=== PATIENT | female | born 1990 | race Hispanic/Latino ===

== ENCOUNTER 2024-11-07 18:35 | Emergency (ER) | payer BC, OTHER ==
[2024-11-07 19:27] LABS: Specific Gravity 1.016 (1.005-1.030)
--- NOTE | 2024-11-07 20:26 | RAD REPORT ---
EXAMINATION: Head Brain Wo Cont CLINICAL INDICATION: Female, 33 years old.HEADACHE TECHNIQUE: Axial CT images from the skull base to the vertex without intravenous contrast. Coronal an d sagittal reformatted images were created from the data set. One or more of the following dose reduction techniques were used: Automated exposure control, adjustment of the mA and/or kV according to patient size, and/or iterative reconstruction. Unless otherwise specified, incidental findings do not require dedicated imaging follow-up. [id number]. COMPARISON: No prior exam. FINDINGS: INTRACRANIAL: No acute intracranial hemorrhage. No hydrocephalus. No mass effect or midline shift. No significant white matter disease. VASCULATURE: No visualized abnormalities in the arteries or dural venous sinuses. SCALP/SKULL: No calvarial fracture identified. No acute soft tissue abnormality. SINUSES: The visualized paranasal sinuses are mostly clear. No significant mastoid fluid. IMPRESSION: No acute intracranial abnormality.
[2024-11-07] MEDS ORDERED: DIPHENHYDRAMINE 50 MG/ML VIAL ONE (20:40)
[2024-11-07] MEDS ORDERED: KETOROLAC 30 MG/ML INJ ONE (20:40)
[2024-11-07] MEDS ORDERED: dexAMETHasone 10 MG/ML VIAL ONE (20:40)
[2024-11-07] MEDS ORDERED: NA CHLORIDE 0.9% 1,000 ML ONE (20:41)
[2024-11-07] MEDS ORDERED: NA CHLORIDE 0.9% 50 ML ONE (20:41)
[2024-11-07] MEDS ORDERED: METOCLOPRAMIDE 10 MG/2mL INJ ONE (20:41)
--- NOTE | 2024-11-07 21:32 | ER ---
Nurse's Notes [facility] Name: Rohini Adames Age: 33 yrs Sex: Female : 1990 Arrival Date: 11/07/2024 Time: 18:35 Bed DX3 Private MD: Diagnosis: Headache Presentation: 11/07 18:58 Chief complaint: Patient states: headache last night at 7pm, was intense stabbing pain iw behind right ear around side of head and down neck, felt dizzy and hot and had n/v , laid in dark room and pain subsided, today the pain is back , not as intense but in same spot, no hx of migraines. Coronavirus screen: At this time, the client does not indicate any symptoms associated with coronavirus-19. Ebola Screen: No symptoms or risks identified at this time. Initial Sepsis Screen: Does the patient meet any 2 criteria? No. Patient's initial sepsis screen is negative. Does the patient have a suspected source of infection? No. Patient's initial sepsis screen is negative. Risk Assessment: Do you want to hurt yourself or someone else? Patient reports no desire to harm self or others. 18:58 Method Of Arrival: Ambulatory iw 18:58 Acuity: SARITHA 3 iw 19:01 Onset of symptoms was November 06, 2024. iw Triage Assessment: 19:01 Headache History: The patient has had previous headaches and this one is more severe iw than previous episodes. General: Appears in no apparent distress. Behavior is calm, cooperative. Pain: Complains of pain in right ear and right uatsdin Pain. 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 Screenin:00 [facility] ED Fall Risk Assessment (Adult) History of falling in the last 3 months, vc1 including since admission No falls in past 3 months (0 pts) Confusion or Disorientation No (0 pts) Intoxicated or Sedated No (0 pts) Impaired Gait No (0 pts) Mobility Assist Device Used No (0 pt) Altered Elimination No (0 pt) Score/Fall Risk Level 0 - 2 = Low Risk Oriented to surroundings, Maintained a safe environment, Educated pt \T\ family on fall prevention, incl call for assistance when getting out of bed, Hourly rounding (assess needs \T\ fall precautionary measures) done. Abuse screen: Denies threats or abuse. Nutritional screening: No deficits noted. Tuberculosis screening: No symptoms or risk factors identified. Vital Signs: 19:01 BP 133 / 101; Pulse 78; Resp 16; Temp 98.8; Pulse Ox 98% on R/A; Weight 108.86 kg; iw Height 5 ft. 10 in. ; Pain 3/10; 22:09 BP 128 / 88; Pulse 76; Resp 16; Pulse Ox 100% ; vc1 19:01 Body Mass Index 34.44 (108.86 kg, 177.8 cm) iw 19:01 Pain Scale: Adult iw [place] Coma Score: 21:30 Eye Response: spontaneous(4). Motor Response: obeys commands(6). Verbal Response: kb oriented(5). Total: 15. ED Course: 18:38 Patient arrived in ED. im 18:42 Farideh Nicole FNP-C [facility]. kb 18:42 Lee Jack MD is Attending Physician. kb 19:00 Triage completed. iw 19:02 Arm band placed on. iw 20:14 CT Head Brain wo Cont In Process Unspecified. EDMS 20:45 Inserted saline lock: 20 gauge in right antecubital area, using aseptic technique. vc1 20:54 Kim Van, RN is Primary Nurse. vc1 22:05 No provider procedures requiring assistance completed. IV discontinued, intact, vc1 bleeding controlled, No redness/swelling at site. Pressure dressing applied. 22:09 Patient has correct armband on for positive identification. Provided Education on: vc1 medications. Administered Medications: 20:55 Drug: Ketorolac IVP 15 mg IVP once Route: IVP; Site: right antecubital; vc1 22:10 Follow up: Response: No adverse reaction; Marked relief of symptoms vc1 20:55 Drug: NS 0.9% IV 1000 ml IV at 1000 ml once; to be given as a bolus over 60 minutes vc1 Route: IV; Rate: 1000 ml; Site: right antecubital; 22:10 Follow up: IV Status: Completed infusion; IV Intake: 1000ml vc1 20:55 Drug: metoCLOPramide IVP 10 mg IVP once; over 1 to 2 minutes Route: IVP; Site: right vc1 antecubital; 22:10 Follow up: Response: No adverse reaction; Marked relief of symptoms vc1 20:55 Drug: diphenhydrAMINE IVP 25 mg IVP once Route: IVP; Site: right antecubital; vc1 22:10 Follow up: Response: No adverse reaction; Marked relief of symptoms vc1 20:56 Drug: Decadron - Dexamethasone IVP 10 mg IVP once Route: IVP; Site: right antecubital; vc1 22:10 Follow up: Response: No adverse reaction; Marked relief of symptoms vc1 Medication: 22:05 VIS not applicable for this client. vc1 Intake: 22:10 IV: 1000ml; Total: 1000ml. vc1 Outcome: 21:32 Discharge ordered by . sylvain 22:08 Discharged to home ambulatory, vc1 22:08 Condition: stable 22:08 Discharge instructions given to patient, Instructed on discharge instructions, follow up and referral plans. Demonstrated understanding of instructions, follow-up care, 22:11 Patient left the ED. vc1 Signatures: Dispatcher [employer] EDFarideh Johnson, PLEXIGLAS FORMER-C PLEXIGLAS FORMER-CkShereen Jacques, RN RN iw Kim Van RN RN vc1 Jasmin Collado Corrections: (The following items were deleted from the chart) 19:03 19:01 BP 133 / 101; Pulse 78bpm; Resp 16bpm; Pulse Ox 98% RA; Temp 98.8F; iw iw
--- NOTE | 2024-11-07 21:32 | EDPHYS ---
Physician Documentation [facility] Name: Rohini Adames Age: 33 yrs Sex: Female : 1990 Arrival Date: 11/07/2024 Time: 18:35 Bed DX3 Private MD: ED Physician Lee Jack HPI: 11/07 21:29 This 33 yrs old Female presents to ER via Ambulatory with complaints of kb Headache, Dizziness, Nausea/Vomiting, Palpitations. 21:29 Pt is a 33 year old female who presents for a headache to right side of head that kb started yesterday. States it has been intermittent, getting better with tylenol/motrin. Reports nausea and vomiting. States pain gets worse with movement, lights, noise. Denies headache history. 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 ROS: 21:28 Constitutional: As per HPI kb Exam: 21:28 Constitutional: This is a well developed, well nourished patient who is awake, alert, kb and in no acute distress. Head/Face: Normocephalic, atraumatic. Eyes: Pupils equal round and reactive to light, extra-ocular motions intact. Lids and lashes normal. Conjunctiva and sclera are non-icteric and not injected. Cornea within normal limits. Periorbital areas with no swelling, redness, or edema. ENT: Moist Mucous membranes Cardiovascular: Regular rate Respiratory: Respirations even and unlabored. No increased work of breathing. Talking in full sentences Skin: Warm, dry with normal turgor. Normal color. MS/ Extremity: Pulses equal, no cyanosis. Neurovascular intact. Full, normal range of motion. Neuro: Awake and alert, GCS 15, oriented to person, place, time, and situation. Vital Signs: 19:01 BP 133 / 101; Pulse 78; Resp 16; Temp 98.8; Pulse Ox 98% on R/A; Weight 108.86 kg; iw Height 5 ft. 10 in. ; Pain 3/10; 22:09 BP 128 / 88; Pulse 76; Resp 16; Pulse Ox 100% ; vc1 19:01 Body Mass Index 34.44 (108.86 kg, 177.8 cm) iw 19:01 Pain Scale: Adult iw [place] Coma Score: 21:30 Eye Response: spontaneous(4). Motor Response: obeys commands(6). Verbal Response: kb oriented(5). Total: 15. MDM: 18:42 Medical Screening Exam initiated kb 21:30 Differential diagnosis: cluster headache, migraine, tension headache. Data reviewed: kb vital signs, nurses notes. Historians other than the Patient: Spouse/Significant Other: spouse. Counseling: I had a detailed discussion with the patient and/or guardian regarding the historical points, exam findings, and any diagnostic results supporting the discharge/admit diagnosis, lab results, radiology results, the need for outpatient follow up, a family practitioner, to return to the emergency department if symptoms worsen or persist or if there are any questions or concerns that arise at home. 11/07 19:04 Order name: Test, Urine; Complete Time: 19:34 kb 11/07 19:04 Order name: CT Head Brain wo Cont; Complete Time: 20:27 kb 11/07 20:28 Order name: IV Start; Complete Time: 20:55 kb Administered Medications: 20:55 Drug: Ketorolac IVP 15 mg IVP once Route: IVP; Site: right antecubital; vc1 22:10 Follow up: Response: No adverse reaction; Marked relief of symptoms vc1 20:55 Drug: NS 0.9% IV 1000 ml IV at 1000 ml once; to be given as a bolus over 60 minutes vc1 Route: IV; Rate: 1000 ml; Site: right antecubital; 22:10 Follow up: IV Status: Completed infusion; IV Intake: 1000ml vc1 20:55 Drug: metoCLOPramide IVP 10 mg IVP once; over 1 to 2 minutes Route: IVP; Site: right vc1 antecubital; 22:10 Follow up: Response: No adverse reaction; Marked relief of symptoms vc1 20:55 Drug: diphenhydrAMINE IVP 25 mg IVP once Route: IVP; Site: right antecubital; vc1 22:10 Follow up: Response: No adverse reaction; Marked relief of symptoms vc1 20:56 Drug: Decadron - Dexamethasone IVP 10 mg IVP once Route: IVP; Site: right antecubital; vc1 22:10 Follow up: Response: No adverse reaction; Marked relief of symptoms vc1 Disposition Summary: 11/07/24 21:32 Discharge Ordered Notes: Location: Home kb Condition: Stable kb Diagnosis - Headache kb Followup: kb - With: Emergency Department - When: As needed - Reason: Worsening of condition Followup: kb - With: Private Physician - When: 2 - 3 days - Reason: Recheck today's complaints, Continuance of care, Re-evaluation by your physician Discharge Instructions: - Discharge Summary Sheet kb - General Headache Without Cause, [id number] kb Forms: - Medication Reconciliation Form kb - Antibiotic Education kb - Prescription Opioid Use kb - Patient Portal Instructions kb - Leadership Thank You Letter kb Signatures: Dispatcher [employer] Farideh Henriquez, SALES TECHNICIAN HOME THEATER-C SALES TECHNICIAN HOME THEATER-Shereen Orozco, RN RN iw Kim Van RN RN vc1
[2024-11-07 22:33] VITALS: TEMP 98.8
[2024-11-07 22:34] VITALS: BP 128/88; O2SAT 100
== END 2024-11-07 22:11 | disposition home or self-care (01) ==
LOC: ER 18:35
DX: R51.9 Headache, unspecified (principal); R11.2 Nausea with vomiting, unspecified
CPT/HCPCS: 96361; 81025; 70450; 96375; 96374; 99284; J2765; J1200; J1100; J7030